=== PATIENT | male | born 1985 | race Caucasian/White ===

== ENCOUNTER → 2025-04-16 | Emergency (ER) | payer BC, OTHER ==
[~2025-04-16] VITALS: Ht 167.6 cm; Wt 114.8 kg
[~2025-04-16] MED LIST: DEXA4TAB68 PO; TRAM50TA2 PO
[2025-04-16 10:06] VITALS: BP 167/84; PULSE 94; TEMP 97.3; O2SAT 98
[2025-04-16 11:23] VITALS: RESP 14
--- NOTE | 2025-04-16 11:59 | RADIOLOGY REPORT ---
INDICATION: back pain after rolling over and sitting up COMPARISON: None TECHNIQUE: Frontal and lateral views of the lumbar spine were obtained. FINDINGS: The lumbar vertebral alignment is normal. The intervertebral disc spaces are well-maintained. No significant facet arthropathy is noted. No acute fracture, vertebral compression deformity or aggressive osseous lesions. The paravertebral soft tissues are grossly unremarkable. IMPRESSION: 1. No acute fracture.
--- NOTE | 2025-04-16 12:10 | RADIOLOGY REPORT ---
DI SACRUM COCCYX HISTORY: back pain after rolling over and sitting up TECHNICAL DATA: Frontal, Jain and lateral views were obtained of the sacrum and coccyx. COMPARISON: None FINDINGS: No fracture or focal abnormality is demonstrated involving the sacrum. The sacral neural foramina olya ear symmetric. There is no distraction or displacement of the coccygeal segments. The sacroiliac join ts appear normal. IMPRESSION: 1. No fracture or dislocation in the sacrum or coccyx.
--- NOTE | 2025-04-16 12:46 | Physician Documentation ---
History of Present Illness ~ Chief Complaint: Back Pain Stated Complaint: LOWER BACK PAIN Time Seen by MD: 11:05 OK to notify your PCP?: Yes Primary Medical Doctor: [facility] Source: patient Mode of Arrival: POV Exam Limitations: no limitations HPI 39-year-old male with chief complaint lower back pain that occurred four days ago when he was at work and he was on the ground working on something and he rolled over to sit up and states he felt a pop and immediately felt pain to the right of his tailbone area and lower back. Pain is the worse when he tries to go from a supine to a seated position or standing position. He states the pain does not radiate into his extremities. He denies any clumsiness of his legs, urinary retention or bowel or bladder incontinence. No history of back problems. No pre arrival treatment. He went to procedure urgent care to be evaluated but was sent here since he states it is a worker's comp injury. Medication Reconciliation Allergies: Uncoded Allergies: PCN (Allergy, Unknown, itch, 04/16/25) Scheduled Dexamethasone (Dexamethasone), 1 TAB PO DAILY Scheduled PRN Tramadol HCl (Tramadol HCl), 1 TAB PO TID PRN PRN for pain Past Medical History Past Medical History: No Pertinent History Past Surgical History: orthopedic surgeries Alcohol Use: Occasionally Drug Use: none Review of Systems All Other Systems at this time: Reviewed and Negative Physical Exam Physical Exam Vital Signs: Temperature: 97.3, Source: Temporal, Heart Rate: 94, Respiratory Rate: 14, BP: 167/84, Pulse Oximetry: 98, Weight: 114.750 Physical Exam GENERAL: Alert, no acute distress. HEENT: NCAT, EOMI, PERRL, normal oropharynx, moist oral mucosa. NECK: Supple, trachea midline. CARDIAC: Regular rate and rhythm, no murmurs, rubs, or gallops. RESPIRATORY: Equal breath sounds, clear to auscultation bilaterally, no respiratory distress. MUSCULOSKELETAL: NTTP OVER SPINOUS PROCESSES. PATIENT HAS PAIN IN LOWER BACK WHEN GOING FROM SUPINE TO STANDING POSITION. NEGATIVE SLR. NEUROLOGICAL: Awake, alert, and oriented x 3. SKIN: Warm/dry, no pallor, no rash. PSYCH: Alert and appropriate. Affect congruent with mood. Speech is clear. Good eye contact. Progress Results/Orders Results/Orders Orders - QING NIXON Lumbar Spine Limited (04/16/25 11:22) Sacrum & Coccyx (04/16/25 11:22) Lidocaine 5% Patch (Lidoderm 5% Patch) (04/16/25 12:50) Completed Orders - QING NIXON Lumbar Spine Limited (04/16/25 11:22) Sacrum & Coccyx (04/16/25 11:22) Dexamethasone Tablet (Decadron Tablet) (04/16/25 12:20) Medications Received in ER Medications (Trade) Dose Ordered Sig/Sherine Route PRN Reason Start Time Stop Time Status Last Admin Dose Admin (Decadron tablet) 8 mg ONCE ONCE PO 04/16/25 12:20 04/16/25 12:21 DC 04/16/25 12:25 8 MG (Lidoderm 5% Patch) 1 patch DAILY TP 04/16/25 12:50 04/16/25 12:55 1 PATCH Vital Signs 04/16/25 04/16/25 10:06 11:23 Temp 97.3 Pulse 94 Resp 20 14 B/P (MAP) 167/84 Pulse Ox 98 Medical Decision Making Findings DI SACRUM COCCYX HISTORY: back pain after rolling over and sitting up TECHNICAL DATA: Frontal, Jain and lateral views were obtained of the sacrum and coccyx. COMPARISON: None FINDINGS: No fracture or focal abnormality is demonstrated involving the sacrum. The sacral neural foramina appear symmetric. There is no distraction or displacement of the coccygeal segments. The sacroiliac joints appear normal. IMPRESSION: 1. No fracture or dislocation in the sacrum or coccyx. Differential Dx:Considerations: Include: AAA, Aortic dissection, Appendicitis, Bowel obstruction, Cholelithiasis, Cholangitis, DJD, Fracture, Hepatitis, HNP, Musculoskeletal pain, Pancreatitis, Pyelonephritis, Renal infarction, Strain, Urinary obstruction, Urolithiasis, Urinary tract infection Differential Diagnosis PAIN IS LOCALIZED TO LOWER BACK COCCYGEAL AREA NO RADICULAR SYMPTOMS THUS NO CONCERN FOR NERVE IMPINGEMENT. XRAY NEGATIVE FOR FRACTURES OR ALBERTO ABNORMALITIES. INDICATION: back pain after rolling over and sitting up COMPARISON: None TECHNIQUE: Frontal and lateral views of the lumbar spine were obtained. FINDINGS: The lumbar vertebral alignment is normal. The intervertebral disc spaces are well-maintained. No significant facet arthropathy is noted. No acute fracture, vertebral compression deformity or aggressive osseous lesions. The paravertebral soft tissues are grossly unremarkable. IMPRESSION: 1. No acute fracture. Departure Time of Disposition: 12:43 Disposition: 01 HOME / SELF CARE / HOMELESS Impression: Primary Impression: Low back pain Qualified Codes: M54.50 - Low back pain, unspecified Condition: Stable Discharge Instructions: Acute Back Pain, Adult Additional Instructions: F/U WITH WORKER'S COMP PROVIDER XRAYS/IMAGING NORMAL DEXAMETHASONE YOU CAN TAKE TOMORROW SINCE WE GAVE YOU A DOSE HERE Departure Forms: Excuse form Work or School Excused From: Work Additional Instructions: MAY RETURN TO WORK WHEN CLEARED BY WORKER'S COMP Referrals: NO PRIMARY CARE PROVIDER (PCP) Prescriptions Dexamethasone (Dexamethasone) 4 Mg Tablet 1 TAB PO DAILY for 5 Days, #5 TAB 0 Refills Prov: QING NIXON 04/16/25 Dexamethasone (Dexamethasone) 4 Mg Tablet 1 TAB PO DAILY for 5 Days, #5 TAB 0 Refills Take 2 tablets 3 times a day for 2 days, then 1 tablet 3 times a day for 2 days, then 1 tablet twice daily for 2 days, then 1 Prov: QING NIXON 04/16/25 Education Educated: Patient Educated regarding: diagnosis, treatment, need for follow up Signature Scribe Signature: Renee Attestation: QING LAST Apr 16, 2025 12:46
== END | disposition home or self-care (01) ==
LOC: ER 10:02
DX: M54.50 Low back pain, unspecified (principal); Z72.89 Other problems related to lifestyle; Z79.899 Other long term (current) drug therapy
CPT/HCPCS: 72100; 72220; 99284